=== PATIENT | female | born 1990 | race Caucasian/White ===

== ENCOUNTER 2020-07-11 | Outpatient (REF) | payer OTHER, SELFPAY | END 2020-07-11 00:01 | disposition home or self-care (01) | LOC: HO.LNP | PROVIDERS: Visit Provider Nurse Practitioner Family | DX: R68.83 Chills (without fever) (principal) | CPT/HCPCS: U0003 ==

== ENCOUNTER 2020-10-20 08:35 | Outpatient (REF) | payer OTHER, SELFPAY ==
[2020-10-22 11:41] LABS: C. trachomatis RNA TMA NOT DETECTED (NOT DETECTED); N. gonorrhoeae RNA TMA NOT DETECTED (NOT DETECTED)
[2020-10-25 00:12] LABS: HPV mRNA E6/E7 rflx Not Detected (Not Detected)
== END 2020-10-20 08:36 | disposition home or self-care (01) ==
LOC: HO.LAB 08:35
PROVIDERS: PCP Internal Medicine; Visit Provider Advanced Practice Midwife
DX: Z01.419 Encounter for gynecological examination (general) (routine) without abnormal findings (principal); Z11.51 Encounter for screening for human papillomavirus (HPV); N92.1 Excessive and frequent menstruation with irregular cycle; Z20.2 Contact with and (suspected) exposure to infections with a predominantly sexual mode of transmission; Z97.5 Presence of (intrauterine) contraceptive device
CPT/HCPCS: 36415; 87491; 87591; 87624; 88142

== ENCOUNTER → 2020-11-28 15:01 | Outpatient (BNVA) | payer OTHER, SELFPAY | PROVIDERS: Visit Provider Obstetrics & Gynecology ==

== ENCOUNTER 2020-12-06 07:57 | Outpatient (REF) | payer OTHER, SELFPAY ==
[2020-12-06 14:48] LABS: CT PCR NOT DETECTED (Not Detect.); NG PCR NOT DETECTED (Not Detect.)
== END 2020-12-06 07:58 | disposition home or self-care (01) ==
LOC: HO.LAB 07:57
PROVIDERS: Visit Provider Obstetrics & Gynecology
DX: N92.1 Excessive and frequent menstruation with irregular cycle (principal); Z11.3 Encounter for screening for infections with a predominantly sexual mode of transmission; Z11.8 Encounter for screening for other infectious and parasitic diseases; F17.200 Nicotine dependence, unspecified, uncomplicated; Z88.0 Allergy status to penicillin; Z91.048 Other nonmedicinal substance allergy status
CPT/HCPCS: 11982; 87491; 87591; 99212

== ENCOUNTER 2020-12-11 11:02 | Outpatient (REF) | payer OTHER, SELFPAY ==
--- NOTE | ~2020-12-11 | US_ITS ---
EXAMINATION: PELVIC ULTRASOUND CLINICAL INFORMATION: Excessive and frequent menstruation with irregular cycle COMPARISON: Previous exams most recent June 2019 TECHNIQUE: Transabdominal and transvaginal pelvic ultrasound was performed. Transvaginal exam was performed for better visualization of the uterus and ovaries. FINDINGS: The uterus is anteverted and measures 9.7 x 3.1 x 4.5 cm in dimension. No focal uterine lesion is seen. Endometrial thickness is normal measuring 1 cm. The previously identified IUD is no longer seen.There are nabothian cysts in the cervix. The right ovary measures 2.3 x 1.5 x 1.8 cm and is normal-appearing. The left ovary measures 4.4 x 3.3 x 3.6 cm in dimension. There is a 3.5 x 2.6 x 3 cm simple left ovarian cyst. There is a dilated tubular structure in the left adnexa questionable for hydrosalpinx. This is a new finding compared to June 2019 exam. US/US pelvic complete IMPRESSION: Normal thickness endometrium. IUD no longer seen. New 3.5 x 2.6 x 3 cm simple left ovarian cyst and dilated tubular structure in the left adnexa questionable for hydrosalpinx. This is a new finding compared to previous exam.
--- NOTE | ~2020-12-11 | US_ITS ---
EXAMINATION: PELVIC ULTRASOUND CLINICAL INFORMATION: Excessive and frequent menstruation with irregular cycle COMPARISON: Previous exams most recent June 2019 TECHNIQUE: Transabdominal and transvaginal pelvic ultrasound was performed. Transvaginal exam was performed for better visualization of the uterus and ovaries. FINDINGS: The uterus is anteverted and measures 9.7 x 3.1 x 4.5 cm in dimension. No focal uterine lesion is seen. Endometrial thickness is normal measuring 1 cm. The previously identified IUD is no longer seen.There are nabothian cysts in the cervix. The right ovary measures 2.3 x 1.5 x 1.8 cm and is normal-appearing. The left ovary measures 4.4 x 3.3 x 3.6 cm in dimension. There is a 3.5 x 2.6 x 3 cm simple left ovarian cyst. There is a dilated tubular structure in the left adnexa questionable for hydrosalpinx. This is a new finding compared to June 2019 exam. US/US transvaginal IMPRESSION: Normal thickness endometrium. IUD no longer seen. New 3.5 x 2.6 x 3 cm simple left ovarian cyst and dilated tubular structure in the left adnexa questionable for hydrosalpinx. This is a new finding compared to previous exam.
== END 2020-12-11 11:03 | disposition home or self-care (01) ==
LOC: HO.US 11:02
PROVIDERS: PCP Physician Assistant; Visit Provider Obstetrics & Gynecology
DX: N92.1 Excessive and frequent menstruation with irregular cycle (principal)
CPT/HCPCS: 76830; 76856

== ENCOUNTER 2021-01-14 08:31 | Emergency (ER) | payer OTHER, SELFPAY ==
--- NOTE | ~2021-01-14 | CT_ITS ---
EXAMINATION: CT ABDOMEN AND PELVIS WITHOUT CONTRAST CLINICAL INFORMATION: Left flank pain. COMPARISON: CT of the abdomen and pelvis done on 03/03/2010. TECHNIQUE: Multidetector volumetric imaging was performed from the superior aspect of the liver through the pubic symphysis. Sagittal and coronal reformatted images were obtained on the technologist's workstation. This CT examination was performed using dose optimization techniques as appropriate, variously including the following: *Automated exposure control *Adjustment of mA and/or kV according to patient size (this includes techniques or standardized protocols for targeted exams where dose is matched to indication/reason for exam; i.e. extremities or head) *Use of iterative reconstruction technique DLP: 725.0 mGy-cm FINDINGS: LUNG BASES: The visualized lung bases are unremarkable. LIVER, GALLBLADDER, AND BILIARY TREE: The liver is normal in size, shape, and attenuation. No focal hepatic lesion or biliary ductal dilatation is present. The gallbladder is unremarkable with no evidence of radiopaque gallstones, gallbladder wall thickening, or obvious pericholecystic inflammatory changes. PANCREAS: Unremarkable. SPLEEN: Unremarkable. ADRENAL GLANDS: Unremarkable. KIDNEYS AND URETERS: The kidneys are normal in size, shape, and attenuation. No hydronephrosis, hydroureter, or calculi seen. No perinephric stranding. BLADDER: Unremarkable. GASTROINTESTINAL TRACT: The small and large bowel are unremarkable. The appendix is unremarkable. ABDOMINAL WALL: No significant hernia is appreciated. LYMPH NODES: Normal. VASCULAR: Unremarkable. PELVIC VISCERA: Bilateral adnexal hypodensities are present, measures 5.7 x 3.8 cm on the left and 4.4 x 3.2 cm on the right, new since prior study, likely represent enlarged follicle-containing ovaries. However, given the size on the left, may also represent ovarian neoplasm. No evidence of any free fluid or free air. OSSEOUS STRUCTURES: No suspicious focal lesion. Endplate irregularity, sclerosis,, and focal cortical defect at superior endplate of S1 is present, likely represent degenerative changes. CT/CT abdomen pelvis wo con IMPRESSION: 1. No CT evidence of any radiopaque urine tract calculi and/or obstruction. 2. Bilateral adnexal hypodense lesions, measures 5.7 cm on the left and 4.4 cm on the right, may represent enlarged follicle-containing ovaries however, given the size on the left, possibility of ovarian neoplasm is not excluded. This is new since prior available study dated 03/03/2010.
--- NOTE | ~2021-01-14 | US_ITS ---
EXAMINATION: ULTRASOUND OF THE PELVIS CLINICAL INFORMATION: Left flank pain. Left ovarian mass.. COMPARISON: CT of the abdomen and pelvis done earlier today. Pelvic ultrasound done on 12/11/2020.. TECHNIQUE: Transabdominal and transvaginal pelvic ultrasound. Doppler evaluation including arterial as well as venous spectral Doppler waveforms and color Doppler were performed. FINDINGS: The uterus is normal in size and appearance, measuring 9.5 x 3.3 x 5.0 cm longitudinally, anteroposteriorly and transversely. The endometrial stripe thickness is normal, measuring 0.8 cm in thickness. No focal myometrial mass is seen. Concordant with the CT scan of the abdomen and pelvis done earlier today, there is indeed a cystic left adnexal mass identified, measures 6.3 x 3.6 x 5.1 cm with a volume of 60.6 mL, measured 4.4 x 3.3 x 3.6 cm on the pelvic ultrasound dated 12/11/2020, shows significant interval increase in size since the prior study. Arterial as well as venous flow to the left ovary is well-maintained. The right ovary is visualized, measures 2.3 x 1.4 x 1.3 cm with a volume of 2.2 mL, previously measured 2.3 x 1.5 x 1.8 cm. In addition, there is a tubular structure identified within the right adnexal region, similar to prior pelvic ultrasound dated 12/11/2020, may represent hydrosalpinx. Arterial as well as venous flow to the right ovary is well-maintained. Trace amount of free fluid is noted. A transvaginal study was performed in addition to the transabdominal study which did not yield an adequate examination of the uterus and ovaries due to superimposed distended gas-filled loops of bowel. US/US pelvic and transvaginal IMPRESSION: 1. Sonographically unremarkable uterus. 2. Large left adnexal 6.3 cm maximum dimension cyst, previously measured 4.4 cm on the pelvic ultrasound dated 12/11/2020. Both arterial as well as venous flow are well-maintained. 3. Sonographically normal-appearing right ovary, and dilated tubular fluid containing structure in the region of the right adnexa, may represent hydrosalpinx. 4. Trace amount of free fluid within the pelvis.
[2021-01-14 08:50] VITALS: BP 138/88; PULSE 66; RESP 18; TEMP 36.8; O2SAT 99; BMI 34.2
--- NOTE | 2021-01-14 08:55 | PC.NURSE ---
pt reports unsure if blood is coming from vaginal area or is hematuria. reports l sided ovarian cyst hx of different forms of control.
--- NOTE | 2021-01-14 09:10 | ED_ITS ---
HPI - Abdominal Pain General Chief Complaint: Abdominal Pain Stated Complaint: BACK PAIN POS COVID 2WKS Time Seen by Provider: 01/14/21 08:53 Source: patient Mode of arrival: ambulatory Limitations: no limitations History of Present Illness HPI narrative: 30-year-old female came in for evaluation of left flank pain with hematuria. Left flank pain since yesterday that radiates down to the left abdominal area, patient notice when she wipes after urination see blood on the paper, pain is constant, moderate 5/10, nothing makes it worse, nothing makes it better, never had this pain before. Patient status post IUD removal. History of left ovarian cyst. No nausea, no vomiting, no diarrhea, no fever. Related Data Home Medications Medication Instructions Recorded Confirmed etonogestrel 68 mg subdermal SUBDERMAL 12/06/20 implant Previous Rx's Medication Instructions Recorded cetirizine 10 mg tablet 10 mg PO DAILY 30 Days #30 tab 07/11/20 levofloxacin 750 mg PO DAILY #10 tab 01/14/21 Allergies Allergy/AdvReac Type Severity Reaction Status Date / Time acetic acid [VINEGAR] Allergy Unknown STOMACH Verified 12/06/20 08:17 UPSET penicillin V Allergy Unknown hives Verified 12/06/20 08:17 Penicillins Allergy Unknown RASH,HIVES Verified 12/06/20 08:17 Review of Systems Review of Systems All other systems are reviewed and are negative Constitutional: Reports as per HPI and Reports no additional constitutional complaints Eyes: Reports as per HPI and Reports no additional eye complaints Reports system reviewed and no additional complaints, except as documented Cardiovascular: Reports as per HPI and Reports no additional cardiovascular complaints Respiratory: Reports as per HPI and Reports no additional respiratory complaints Gastrointestinal: Reports as per HPI and Reports no additional gastrointestinal complaints Genitourinary: Reports no additional female genitourinary complaints Musculoskeletal: Reports no additional musculoskeletal complaints Skin/Breast: Reports system reviewed and no additional complaints, except as docu Psychiatric: Reports no additional psychiatric complaints Endocrine: Reports no additional endocrine complaints Hematologic/Lymphatic: Reports no additional hematologic/lymphatic complaints Allergic/Immunologic: Reports no additional allergic/immunologic complaints Reports system reviewed and no additional complaints, except as documented and Reports Abnormal speech present Physical Exam Vital Signs: Vital Signs: Last Vital Signs Temp 98.2 F 01/14/21 08:50 Pulse 66 01/14/21 08:50 Resp 18 01/14/21 08:50 BP 138/88 05/16/21 08:50 Pulse Ox 99 01/14/21 08:50 Body Mass Index 34.2 Vital signs have been reviewed as appeared to be correct. Blood pressure normal. Heart rate normal. Respiration rate normal. Temperature normal. Oxygen saturation normal. Appearance: Alert. Oriented X3. No acute distress. Head: Normal external exam. Normocephalic. Atraumatic. No Castellanos signs noted. No raccoon eyes noted Eyes: PERRLA. EOMI. Conjunctiva and sclera normal. Eyelids normal. ENT: TM's Normal. Pharynx normal. Uvula midline. Moist mucous membranes. No t rismus noted. No drooling noted. No muffled voice noted. Neck: Normal inspection. Neck supple. FROM. No adenopathy. Thyroid Normal. No meningeal signs. No neck mass noted. CVS: Normal heart rate and rhythm. Heart sound normal. No murmurs noted. Pulses normal throughout. Respiratory: No respiratory distress. Painless inspiration. Breath sounds normal. No wheezes/rales/rhonchi noted. Chest nontender. No accessory muscle usage noted or decreased air movement noted. Abdomen: Soft, mild left abdominal. Bowel sounds normal in all 4 quadrants. No distention noted. No organomegaly noted. No visible injury noted. Back: Mild left CVA tenderness. Full range of motion noted. Skin: Skin warm and dry. Normal skin color. Normal skin turgor. No rashes/lesions/lacerations noted. Extremities: No lower extremity edema. Extremities exhibit normal range of motion. Extremities nontender. Neuro: Oriented X 3. No motor deficit. No sensory deficit. Reflexes normal. Course Course Course Narrative: Assessment and plan. 1. Left pyelonephritis with no sepsis or SIRS start the patient on Levaquin. 2. 6 cm left ovarian cyst was discussed with the patient the patient at risk for ovarian torsion patient was instructed to follow-up with her OBGYN for further management of the sizable left ovarian cyst. MDM - Abdominal Pain Lab Data Attestation: I reviewed the patient's lab results. Result diagrams: 01/14/21 09:21 01/14/21 09:21 Labs: Lab Results 01/14/21 01/14/21 01/14/21 Range/Units 09: 09:21 10:13 WBC 11.1 H (4.8-10.8) X10*3/uL RBC 4.51 (4.20-5.50) X10*6/uL Hgb 13.6 (12.0-16.0) g/dl Hct 40.8 (37-47) % MCV 90.5 (80-98) fL MCH 30.2 (27.0-33.0) pg MCHC 33.3 (31.0-35.0) g/dl RDW 12.3 (11.0-16.0) % Plt Count 288 (160-400) X10*3/uL MPV 9.9 (9.4-12.3) fL Immature Gran % (Auto) 0.3 (0.0-0.4) % Neut % (Auto) 71.1 (45-73) % Lymph % (Auto) 19.9 L (20-40) % [place] % (Auto) 7.5 (2-11) % Eos % (Auto) 0.9 (0-4) % Baso % (Auto) 0.3 (0-2) % Lymph # (Auto) 2.2 (1.2-4.9) X10*3/uL [place] # (Auto) 0.8 (0.1-1.2) X10*3/uL Eos # (Auto) 0.1 (0.0-0.4) X10*3/uL Baso # (Auto) 0.0 (0.0-0.2) X10*3/uL Abs Immat Gran (auto) 0.03 (0.00-0.03) X10*3/uL Absolute Neuts (auto) 7.9 (2.0-8.3) X10*3/uL Absolute Nucleated RBC 0.000 (0.0-0.012) X10*3/uL Nucleated RBC % (auto) 0.0 (0.0-0.2) /100WBC Sodium 140 (135-145) mmol/L Potassium 4.0 (3.3-5.1) mmol/L Chloride 107 (96-108) mmol/L Carbon Dioxide 24 (22-29) mmol/L Anion Gap 13 (12-20) BUN 13 (9-16) mg/dL Creatinine 0.82 (0.5-1.4) mg/dL Estim Creat Clear Calc 105.2 Estimated GFR > 60 Random Glucose 98 (60-115) mg/dL Calcium 8.9 (8.4-10.2) mg/dL Total Bilirubin 0.5 (0.0-1.0) mg/dL Direct Bilirubin 0.2 (0.0-0.5) mg/dL AST 16 (5-31) U/L ALT 20 (0-31) U/L Alkaline Phosphatase 80 (39-117) U/L Total Protein 6.4 L (6.5-8.0) g/dL Albumin 4.0 (3.5-5.0) g/dL Lipase 11 (8-78) U/L Urine Color YELLOW Urine Appearance HAZY Urine pH 6.0 (5.0-8.0) Ur Specific [place] 1.015 (1.005-1.025) Urine Protein TRACE (NEG-TRACE) MG/DL Urine Glucose (UA) NEG (NEG) MG/DL Urine Ketones NEG (NEG) MG/DL Urine Blood 3+ H (NEG) Urine Nitrite POS H (NEG) Ur Leukocyte Esterase 1+ H (NEG) Urine RBC 10-14 H (0) /HPF Urine WBC 30-49 H (0-4) /HPF Ur Squamous Epith Cells 1+ /LPF Urine Bacteria 2+ /LPF Urine Mucus 1+ /LPF Urine Test (NEGATIVE) 01/14/21 Range/Units 10:13 WBC (4.8-10.8) X10*3/uL RBC (4.20-5.50) X10*6/uL Hgb (12.0-16.0) g/dl Hct (37-47) % MCV (80-98) fL MCH (27.0-33.0) pg MCHC (31.0-35.0) g/dl RDW (11.0-16.0) % Plt Count (160-400) X10*3/uL MPV (9.4-12.3) fL Immature Gran % (Auto) (0.0-0.4) % Neut % (Auto) (45-73) % Lymph % (Auto) (20-40) % [place] % (Auto) (2-11) % Eos % (Auto) (0-4) % Baso % (Auto) (0-2) % Lymph # (Auto) (1.2-4.9) X10*3/uL [place] # (Auto) (0.1-1.2) X10*3/uL Eos # (Auto) (0.0-0.4) X10*3/uL Baso # (Auto) (0.0-0.2) X10*3/uL Abs Immat Gran (auto) (0.00-0.03) X10*3/uL Absolute Neuts (auto) (2.0-8.3) X10*3/uL Absolute Nucleated RBC (0.0-0.012) X10*3/uL Nucleated RBC % (auto) (0.0-0.2) /100WBC Sodium (135-145) mmol/L Potassium (3.3-5.1) mmol/L Chloride (96-108) mmol/L Carbon Dioxide (22-29) mmol/L Anion Gap (12-20) BUN (9-16) mg/dL Creatinine (0.5-1.4) mg/dL Estim Creat Clear Calc Estimated GFR Random Glucose (60-115) mg/dL Calcium (8.4-10.2) mg/dL Total Bilirubin (0.0-1.0) mg/dL Direct Bilirubin (0.0-0.5) mg/dL AST (5-31) U/L ALT (0-31) U/L Alkaline Phosphatase (39-117) U/L Total Protein (6.5-8.0) g/dL Albumin (3.5-5.0) g/dL Lipase (8-78) U/L Urine Color Urine Appearance Urine pH (5.0-8.0) Ur Specific [place] (1.005-1.025) Urine Protein (NEG-TRACE) MG/DL Urine Glucose (UA) (NEG) MG/DL Urine Ketones (NEG) MG/DL Urine Blood (NEG) Urine Nitrite (NEG) Ur Leukocyte Esterase (NEG) Urine RBC (0) /HPF Urine WBC (0-4) /HPF Ur Squamous Epith Cells /LPF Urine Bacteria /LPF Urine Mucus /LPF Urine Test NEGATIVE (NEGATIVE) Imaging Data CT scan - abdomen: Radiologist's impression: 1. No CT evidence of any radiopaque urine tract calculi and/or obstruction. 2. Bilateral adnexal hypodense lesions, measures 5.7 cm on the left and 4.4 cm on the right, may represent enlarged follicle-containing ovaries however, given the size on the left, possibility of ovarian neoplasm is not excluded. This is new since prior available study dated 03/03/2010. Pelvic ultrasound/Doppler: Radiologist's impression: 1. Sonographically unremarkable uterus. 2. Large left adnexal 6.3 cm maximum dimension cyst, previously measured 4.4 cm on the pelvic ultrasound dated 12/11/2020. Both arterial as well as venous flow are well-maintained. 3. Sonographically normal-appearing right ovary, and dilated tubular fluid containing structure in the region of the right adnexa, may represent hydrosalpinx. 4. Trace amount of free fluid within the pelvis. Discharge Plan Discharge Clinical Impression: Pyelonephritis, Ovarian cyst Patient Disposition: Home, Self-Care Instructions: Ovarian Cyst (ED), Kidney Infection (ED) Prescriptions: New levofloxacin 750 mg tablet 750 mg PO DAILY Qty: 10 RF: 0 No Action cetirizine [Zyrtec] 10 mg tablet 10 mg PO DAILY 30 Days Qty: 30 RF: 0 Nexplanon 68 mg implant subdermal RF: 0 Referrals: Iza Quintero MD [Physician] - 2 days PMF Past Medical History Medical History Arnold-Chiari malformation Asthma Hx of migraine headaches Surgical History History of bunionectomy Social History Social History Alcohol intake: current Alcohol intake frequency: holidays/special occasions only Smoking Status: Never smoker Use of substances other than those prescribed or required for medical reasons: No Advance Directives: Yes Advance Directives Information Provided: No Advance Directives on File: No Patient : No
[2021-01-14 09:25] LABS: MANUAL DIFF FLAG NO
[2021-01-14 09:26] LABS: Basophils Percent Auto 0.3 % (0-2); Eosinophils Absolute Auto 0.1 X10*3/uL (0.0-0.4); Eosinophils Percent Auto 0.9 % (0-4); Hematocrit 40.8 % (37-47); Hemoglobin 13.6 g/dl (12.0-16.0); Imm Gran Abs Auto 0.03 X10*3/uL (0.00-0.03); Imm Gran Pct Auto 0.3 % (0.0-0.4); Lymphocytes Absolute Auto 2.2 X10*3/uL (1.2-4.9); Lymphocytes Percent Auto 19.9 % (20-40); Mean Corpuscular HGB Conc 33.3 g/dl (31.0-35.0); Mean Corpuscular Hemoglobin 30.2 pg (27.0-33.0); Mean Corpuscular Volume 90.5 fL (80-98); Mean Platelet Volume 9.9 fL (9.4-12.3); Monocytes Absolute Auto 0.8 X10*3/uL (0.1-1.2); Monocytes Percent Auto 7.5 % (2-11); Neutrophils Absolute Auto 7.9 X10*3/uL (2.0-8.3); Neutrophils Percent Auto 71.1 % (45-73); Platelet Count 288 X10*3/uL (160-400); Red Blood Count 4.51 X10*6/uL (4.20-5.50); Red Cell Distribution Width 12.3 % (11.0-16.0); White Blood Count 11.1 X10*3/uL (4.8-10.8)
[2021-01-14] MEDS: 0.9 % Sodium Chloride 1,000 ML 999 ML IVCONT (09:32)
[2021-01-14 10:07] LABS: Alanine Aminotransferase 20 U/L (0-31); Alkaline Phosphatase 80 U/L (39-117); Anion Gap 13 (12-20); Aspartate Amino Transferase 16 U/L (5-31); Bilirubin Direct 0.2 mg/dL (0.0-0.5); Bilirubin Total 0.5 mg/dL (0.0-1.0); Blood Urea Nitrogen 13 mg/dL (9-16); Calcium 8.9 mg/dL (8.4-10.2); Carbon Dioxide 24 mmol/L (22-29); Chloride 107 mmol/L (96-108); Creatinine Clr Calc Pharmacy 105.2; Estimated Glomerular Filt Rate > 60; Glucose Random 98 mg/dL (60-115); Lipase 11 U/L (8-78); Sodium 140 mmol/L (135-145); Total Protein 6.4 g/dL (6.5-8.0)
[2021-01-14 10:27] LABS: Glucose Urine UA NEG (NEG); Leukocyte Esterase Urine 1+ (NEG); Nitrite Urine POS (NEG); Specific Gravity - Urine 1.015 (1.005-1.025); UACC Culture Trigger YES; Urine Blood 3+ (NEG); Urine Ketones NEG (NEG); Urine Protein TRACE MG/DL (NEG-TRACE)
[2021-01-14 10:28] LABS: UPreg QC Valid YES; Urine Pregnancy NEGATIVE (NEGATIVE)
[2021-01-14 10:32] LABS: Appearance Urine HAZY; Color Urine YELLOW
[2021-01-14 10:34] LABS: Bacteria Urine 2+ /LPF; Mucus Urine 1+ /LPF; Squamous Epithelial Cell Urine 1+ /LPF; WBC Urine 30-49 /HPF (0-4)
--- NOTE | 2021-01-14 12:43 | PC.NURSE ---
pt at [facility] unable to hang bc
[2021-01-14] MEDS: levoFLOXacin/D5W 750 MG/150 ML PIGGYBACK 100 MG IV (13:48)
== END 2021-01-14 15:44 | disposition home or self-care (01) ==
PROVIDERS: Emergency Provider Emergency Medicine
DX: N10 Acute pyelonephritis (principal); N83.202 Unspecified ovarian cyst, left side; Z79.899 Other long term (current) drug therapy; Z86.16 Personal history of COVID-19
CPT/HCPCS: 36415; 74176; 76830; 76856; 80048; 80076; 81001; 81003; 81025; 83605; 83690; 85025; 87040; 87086; 87088; 87186; 93975; 99284; J1956

== ENCOUNTER → 2021-01-23 14:36 | Outpatient (BNVA) | payer OTHER, SELFPAY | PROVIDERS: PCP Internal Medicine; Visit Provider Obstetrics & Gynecology ==

== ENCOUNTER 2021-04-13 08:11 | Outpatient (REF) | payer OTHER, SELFPAY ==
[2021-04-13 11:29] LABS: MANUAL DIFF FLAG NO
[2021-04-13 11:40] LABS: Basophils Percent Auto 0.2 % (0-2); Eosinophils Absolute Auto 0.1 X10*3/uL (0.0-0.4); Eosinophils Percent Auto 0.9 % (0-4); Hematocrit 41.8 % (37-47); Hemoglobin 13.6 g/dl (12.0-16.0); Imm Gran Abs Auto 0.04 X10*3/uL (0.00-0.03); Imm Gran Pct Auto 0.4 % (0.0-0.4); Lymphocytes Absolute Auto 2.7 X10*3/uL (1.2-4.9); Lymphocytes Percent Auto 29.8 % (20-40); Mean Corpuscular HGB Conc 32.5 g/dl (31.0-35.0); Mean Corpuscular Hemoglobin 29.6 pg (27.0-33.0); Mean Corpuscular Volume 90.9 fL (80-98); Mean Platelet Volume 11.2 fL (9.4-12.3); Monocytes Absolute Auto 0.6 X10*3/uL (0.1-1.2); Monocytes Percent Auto 6.8 % (2-11); Neutrophils Absolute Auto 5.7 X10*3/uL (2.0-8.3); Neutrophils Percent Auto 61.9 % (45-73); Platelet Count 266 X10*3/uL (160-400); Red Cell Distribution Width 12.7 % (11.0-16.0); White Blood Count 9.2 X10*3/uL (4.8-10.8)
[2021-04-13 11:58] LABS: Alanine Aminotransferase 17 U/L (0-31); Anion Gap 12 (12-20); Aspartate Amino Transferase 14 U/L (5-31); Blood Urea Nitrogen 14 mg/dL (9-16); Calcium 9.2 mg/dL (8.4-10.2); Carbon Dioxide 24 mmol/L (22-29); Chloride 106 mmol/L (96-108); Cholesterol 190 mg/dL; Estimated Glomerular Filt Rate > 60; Glucose Fasting 101 mg/dL (60-99); HDL Cholesterol 54 mg/dL; LDL Cholesterol Calculated 122 mg/dl; Potassium 4.1 mmol/L (3.3-5.1); Sodium 138 mmol/L (135-145); Triglycerides 70 mg/dL
[2021-04-13 12:21] LABS: TSH reflex Free T4 0.87 uIU/mL (0.32-4.0); Vitamin D 25-OH Total 25.3 ng/mL (>30)
== END 2021-04-13 08:12 | disposition home or self-care (01) ==
LOC: HO.HMGCLDS 08:11
PROVIDERS: PCP Internal Medicine; Visit Provider Internal Medicine
DX: Z00.01 Encounter for general adult medical examination with abnormal findings (principal); N92.1 Excessive and frequent menstruation with irregular cycle; I10 Essential (primary) hypertension; Z83.3 Family history of diabetes mellitus; Z83.49 Family history of other endocrine, nutritional and metabolic diseases
CPT/HCPCS: 36415; 80048; 80061; 82306; 84443; 84450; 84460; 85025

== ENCOUNTER 2021-04-23 13:02 | Outpatient (REF) | payer OTHER, SELFPAY ==
--- NOTE | ~2021-04-23 | US_ITS ---
EXAMINATION: US PELVIS CLINICAL INFORMATION: Question ovarian cyst. COMPARISON: Pelvic ultrasound dated 01/14/2021. TECHNIQUE: Ultrasound of the pelvis is performed using both transabdominal and transvaginal transducers along with Doppler. Transvaginal imaging is performed due to inadequate visualization transabdominally. FINDINGS: Uterus: The uterus is anteverted and measures 10.3 x 3.2 x 4.6 cm. The uterus is anteverted and anteflexed. The double wall endometrial thickness is 1.0 mm. The uterus is smooth in contour and has normal myometrial echogenicity. No visible fibroid. Adnexa: Both ovaries are visualized. There is normal color flow to the adnexa. There is no ovarian torsion. There is no pelvic ascites or fluid collection. In the left adnexa, a 4.0 x 2.3 x 3.7 cm tubular structure, again suspicious for hydrosalpinx. Right ovary measures 2.1 x 1.7 x 1.9 cm (volume 3.4 mL). Left ovary measures 2.7 x 2.0 x 3.5 cm (volume 6.9 mL). The left ovary contains a 1.7 x 0.7 x 1.4 cm resolving corpus luteum cyst with internal mildly reticulated appearance. US/US pelvic and transvaginal IMPRESSION: 1. A left hydrosalpinx is again questioned. If clinically indicated, this can be further evaluated MRI or hysterosalpingography. Recommend Gynecology evaluation an management. 2. A 1.7 cm maximal diameter left ovarian hemorrhagic cyst is of incidental note.
== END 2021-04-23 13:03 | disposition home or self-care (01) ==
LOC: HO.US 13:02
PROVIDERS: PCP Physician Assistant; Visit Provider Obstetrics & Gynecology
DX: N83.209 Unspecified ovarian cyst, unspecified side (principal)
CPT/HCPCS: 76830; 76856

== ENCOUNTER → 2021-05-08 16:01 | Outpatient (BNVA) | payer OTHER, SELFPAY | PROVIDERS: Visit Provider Obstetrics & Gynecology ==

== ENCOUNTER 2021-10-29 08:34 | Outpatient (REF) | payer OTHER, SELFPAY ==
[2021-10-29 15:14] LABS: CT PCR NOT DETECTED (Not Detect.); NG PCR NOT DETECTED (Not Detect.)
[2021-10-29 16:21] LABS: BV Int Neg Control Negative (Negative); BV Int Pos Control Positive (Positive)
== END 2021-10-29 08:35 | disposition home or self-care (01) ==
LOC: HO.LAB 08:34
PROVIDERS: Visit Provider Advanced Practice Midwife
DX: Z31.69 Encounter for other general counseling and advice on procreation (principal); R10.2 Pelvic and perineal pain; Z20.2 Contact with and (suspected) exposure to infections with a predominantly sexual mode of transmission
CPT/HCPCS: 87480; 87491; 87510; 87591; 87660

== ENCOUNTER 2021-11-22 11:26 | Outpatient (REF) | payer OTHER, SELFPAY ==
--- NOTE | ~2021-11-22 | US_ITS ---
EXAM: Pelvic Ultrasound CLINICAL INDICATION: Chronic salpingitis COMPARISON: Pelvic ultrasound 04/23/2021 TECHNIQUE: The pelvis was evaluated using transabdominal and transvaginal imaging. FINDINGS: The uterus measures 9.3 x 3.4 x 4.5 cm in longitudinal by AP by transverse dimension. The endometrial stripe is not thickened and measures 1.0 cm. Small nabothian cyst identified within the cervix. The left ovary measures approximately 2.8 x 2.4 x 2.6 cm. There is a 2.5 cm simple appearing cyst within the left ovary. Abutting the left ovary there is a hypoechoic tubular shaped structure measuring upwards of 6.5 cm which is most suggestive of a hydrosalpinx. The right ovary measures approximately 2.3 x 1.3 x 1.5 cm and is normal. There is no free fluid in the pelvis. US/US pelvic and transvaginal IMPRESSION: -Left hydrosalpinx again suspected.
== END 2021-11-22 11:27 | disposition home or self-care (01) ==
LOC: HO.US 11:26
PROVIDERS: Visit Provider Advanced Practice Midwife
DX: N70.11 Chronic salpingitis (principal)
CPT/HCPCS: 76830; 76856

== ENCOUNTER → 2021-12-06 11:18 | Outpatient (BNVA) | payer OTHER, SELFPAY | PROVIDERS: PCP Internal Medicine; Visit Provider Advanced Practice Midwife | DX: N70.11 Chronic salpingitis (principal); Z71.2 Person consulting for explanation of examination or test findings | CPT/HCPCS: Q3014 ==

== ENCOUNTER → 2021-12-28 08:52 | Outpatient (BNVA) | payer OTHER, SELFPAY | PROVIDERS: Visit Provider Advanced Practice Midwife | DX: N70.11 Chronic salpingitis (principal); R10.2 Pelvic and perineal pain; Z31.69 Encounter for other general counseling and advice on procreation | CPT/HCPCS: 81025; 99212 ==

== ENCOUNTER 2022-03-01 15:15 | Outpatient (REF) | payer OTHER, SELFPAY ==
--- NOTE | ~2022-03-01 | US_ITS ---
EXAMINATION: US PELVIS CLINICAL INFORMATION: Chronic salpingitis COMPARISON: Previous exams most recent October 2021 TECHNIQUE: Ultrasound of the pelvis is performed using both transabdominal and transvaginal transducers along with Doppler. Transvaginal imaging is performed due to inadequate visualization transabdominally. FINDINGS: Uterus: The uterus is anteverted and measures 8.2 x 3.6 x 4.3 cm. The double wall endometrial thickness is 1.3 mm. The uterus is smooth in contour and has normal myometrial echogenicity. No visible fibroid. Adnexa: Right ovary measures 2.3 x 1.6 x 2.3 cm. The right ovary is normal-appearing. Left ovary measures 5.1 x 4.8 x 3.5 cm. There is a 2.5 x 1.5 x 1.8 cm left ovarian cyst. There is a dilated tubular septated structure in the left adnexa suggestive of hydrosalpinx. This is similar to previous exam. US/US pelvic complete IMPRESSION: Left hydrosalpinx similar to previous exam.
== END 2022-03-01 15:16 | disposition home or self-care (01) ==
LOC: HO.US 15:15
PROVIDERS: Visit Provider Advanced Practice Midwife
DX: N70.11 Chronic salpingitis (principal)
CPT/HCPCS: 76856

== ENCOUNTER 2022-04-15 13:48 | Outpatient (REF) | payer OTHER, SELFPAY ==
[2022-04-16 04:57] LABS: CT PCR NOT DETECTED (Not Detect.); NG PCR NOT DETECTED (Not Detect.)
[2022-04-16 13:39] LABS: BV Int Neg Control Negative (Negative); BV Int Pos Control Positive (Positive)
== END 2022-04-15 13:49 | disposition home or self-care (01) ==
LOC: HO.LAB 13:48
PROVIDERS: Visit Provider Advanced Practice Midwife
DX: R10.2 Pelvic and perineal pain (principal); N93.9 Abnormal uterine and vaginal bleeding, unspecified; Z20.2 Contact with and (suspected) exposure to infections with a predominantly sexual mode of transmission
CPT/HCPCS: 81003; 81025; 87480; 87491; 87510; 87591; 87660; 99212

== ENCOUNTER 2022-05-20 08:07 | Outpatient (REF) | payer OTHER, SELFPAY ==
[2022-05-20 09:37] LABS: Hematocrit 42.2 % (37.0-47.0); Hemoglobin 13.9 g/dl (12.0-16.0); Mean Corpuscular HGB Conc 32.9 g/dl (31.0-35.0); Mean Corpuscular Hemoglobin 29.6 pg (27.0-33.0); Mean Platelet Volume 10.2 fL (9.4-12.3); Platelet Count 327 X10*3/uL (160-400); Red Blood Count 4.69 X10*6/uL (4.20-5.50); Red Cell Distribution Width 12.7 % (11.0-16.0); White Blood Count 6.9 X10*3/uL (4.8-10.8)
[2022-05-20 10:19] LABS: Thyroid Stimulating Hormone 0.55 uIU/mL (0.32-4.0)
== END 2022-05-20 08:08 | disposition home or self-care (01) ==
LOC: HO.LAB 08:07
PROVIDERS: Absent Provider Advanced Practice Midwife; PCP Internal Medicine; Visit Provider Obstetrics & Gynecology
DX: Z31.69 Encounter for other general counseling and advice on procreation (principal); N70.11 Chronic salpingitis; N93.9 Abnormal uterine and vaginal bleeding, unspecified; N92.1 Excessive and frequent menstruation with irregular cycle
CPT/HCPCS: 36415; 84443; 85027; 99212

== ENCOUNTER 2022-08-08 14:26 | Outpatient (REF) | payer OTHER, SELFPAY ==
[2022-08-08 15:15] LABS: Influenza A PCR POSITIVE (Negative); Influenza B PCR NEGATIVE (Negative); Resp Syncy Virus RNA Qual PCR NEGATIVE (Negative); SARS COV2 PCR INHOUSE NEGATIVE (Negative)
== END 2022-08-08 14:27 | disposition home or self-care (01) ==
LOC: HO.LNP 14:26
PROVIDERS: Visit Provider Internal Medicine
DX: Z20.822 Contact with and (suspected) exposure to COVID-19 (principal); R09.89 Other specified symptoms and signs involving the circulatory and respiratory systems
CPT/HCPCS: 0241U

== ENCOUNTER 2022-11-01 08:48 | Outpatient (REF) | payer OTHER, SELFPAY ==
[2022-11-02 03:23] LABS: CT PCR NOT DETECTED (Not Detect.); NG PCR NOT DETECTED (Not Detect.)
[2022-11-02 11:34] LABS: BV Int Neg Control Negative (Negative)
[2022-11-02 11:35] LABS: BV Int Pos Control Positive (Positive)
== END 2022-11-01 08:49 | disposition home or self-care (01) ==
LOC: HO.LNP 08:48
PROVIDERS: PCP Internal Medicine; Visit Provider Advanced Practice Midwife
DX: Z01.419 Encounter for gynecological examination (general) (routine) without abnormal findings (principal); Z20.2 Contact with and (suspected) exposure to infections with a predominantly sexual mode of transmission
CPT/HCPCS: 0353U; 87480; 87510; 87660

== ENCOUNTER 2022-11-19 16:21 | Outpatient (REF) | payer OTHER, SELFPAY ==
--- NOTE | ~2022-11-19 | US_ITS ---
EXAM: Pelvic Ultrasound CLINICAL INDICATION: Chronic salpingitis COMPARISON: Pelvic ultrasound 03/01/2022 TECHNIQUE: The pelvis was evaluated using transabdominal and transvaginal imaging. FINDINGS: The uterus measures 9.8 x 4.3 x 4.5 cm in longitudinal by AP by transverse dimension. The endometrial stripe is not thickened and measures 0.5 cm. Some small calcifications are again noted within the lower uterine segment. Nabothian cysts are present within the cervix. The left ovary measures approximately 2.2 x 1.8 x 1.9 cm. Again noted abutting the left ovary is a dilated tubular structure suggesting hydrosalpinx. The right ovary measures approximately 2.2 x 1.8 x 2.3 cm and is normal. There is no free fluid in the pelvis. US/US pelvic and transvaginal IMPRESSION: Again noted abutting the left ovary is a dilated tubular structure suggesting hydrosalpinx.
== END 2022-11-19 16:22 | disposition home or self-care (01) ==
LOC: HO.US 16:21
PROVIDERS: Visit Provider Advanced Practice Midwife
DX: N70.11 Chronic salpingitis (principal); N83.209 Unspecified ovarian cyst, unspecified side
CPT/HCPCS: 76830; 76856

== ENCOUNTER → 2022-12-12 12:57 | Outpatient (BNVA) | payer OTHER, SELFPAY | PROVIDERS: PCP Internal Medicine; Visit Provider Advanced Practice Midwife | DX: Z71.2 Person consulting for explanation of examination or test findings (principal); N70.11 Chronic salpingitis | CPT/HCPCS: 99212 ==

== ENCOUNTER 2023-04-24 09:09 | Outpatient (AMB) | payer OTHER, SELFPAY ==
--- NOTE | 2023-04-24 10:00 | AM.OFFWIN_ITS ---
Intake Vital Signs 04/24/23 10:01 Height 5 ft 3 in Weight 97.125 kg BMI 37.9 BP 110/66 Blood Pressure Location Rt brachial Position Sitting Pulse 77 Pulse Source Pulse Oximeter Temp 97.9 F Temp Source Temporal Artery Scan Pulse Oximetry (%) 99 Oxygen Delivery Method Room Air Intake Visit Reasons: EP ?COVID + test/ [id number] Intake Note: Pt is here requesting to be tested for COVID. Pt states she tested herself at home and was positive but the test was . Patient Tobacco Use Status: Never used Tobacco Allergies acetic acid [VINEGAR] Allergy (Unknown, Verified 04/24/23 10:01) STOMACH UPSET Penicillins Allergy (Unknown, Verified 04/24/23 10:01) RASH,HIVES Do you need a note to return to daycare/school/sports/work: No HPI HPI Comments History of Present Illness Details 1028 33-year-old female presents with fatigue, malaise, frontal headache, body aches and pains, currently 12 weeks followed by OBGYN, she took not home COVID test which is positive however she noted that this test was , her OBGYN recommended she be test with the PCR test. Patient denies chest pain, shortness of breath, nausea, vomiting, vision changes, dizziness and weakness. Physical exam benign. abdomen This is likely viral illness and COVID-19, unlikely intracranial hemorrhage, stroke, posterior stroke. Unlikely polymyalgia rheumatica, rhabdomyolysis. Plan COVID test. Educated patient on diagnosis and treatment plan, answered all question, patient verbalizes understanding. At this time patient will be discharged home, advised to return with new or worsening symptoms. Educated on worrisome signs and symptoms and when to return. At this time I feel comfortable discharge home. [facility] Medical History Arnold-Chiari malformation Asthma Family history of diabetes mellitus Family history of thyroid problem History of COVID-19 Hx of migraine headaches Hydrosalpinx Migraine Pain, eye, left Plantar fascial fibromatosis of left foot Surgical History History of bunionectomy Family History Mother Diabetes mellitus with multiple complications Maternal Grandfather Diabetes mellitus with multiple complications Maternal Grandmother Diabetes mellitus with multiple complications Paternal Uncle Colon cancer Family/Other Breast cancer Social History Household Members: Significant Other and Children Housing: Apartment Alcohol intake: current Alcohol intake frequency: holidays/special occasions only Patient Tobacco Use Status: Never used Tobacco Tobacco use type: Cigarette Cigarette Packs Per Day: 0 Cigarettes Per Day: 1 e-Cigarette/Vaping Use: Never Used service: No Current occupational status: employed 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 Sexual orientation: Straight/Heterosexual Female Reproductive History Menstrual Age of Menarche: 12 Review of Systems Const Details: Constitutional : No Weight loss, No Fever, No Chills, + Fatigue, + Malaise ENT/Mouth : No sore throat, No Rhinorrhea Eyes: No Eye Pain, No Swelling, No Redness Cardiovascular : No Chest Pain, No SOB, No Dyspnea on Exertion, No Orthopnea, No Edema, No Palpitations Respiratory : No Cough, No Sputum, No Wheezing Gastrointestinal : No Nausea, No Vomiting, No Diarrhea, No Constipation, No abdominal Pain, No Hematochezia, No Melena Genitourinary : No Dysuria, No Urinary Frequency, No Hematuria, Musculoskeletal : No joint pain, + Myalgias, No Joint Swelling Skin : No Skin Lesions, No rash Neuro : No Weakness, No Numbness, No Dizziness, + Headache Psych : No Anxiety/Panic, No Depression All other systems reviewed and are negative All systems reviewed & are unremarkable except as noted in HPI and below Physical Exam Vital Signs: Last Vital Signs Temp 97.9 F 04/24/23 10:01 Pulse 77 04/24/23 10:01 BP 110/66 04/24/23 10:01 Pulse Ox 99 04/24/23 10:01 Oxygen Delivery Method Room Air 04/24/23 10:01 BMI result Body Mass Index 37.9 Vital signs stable Appearance: Alert.? Oriented X3.? No acute distress.? Head: Normocephalic, atraumatic, no step-offs or deformities Eyes: Pupils equal, round and reactive to light.? ENT: Pharynx normal.? Neck: Normal inspection.? Neck supple.? CVS: Normal heart rate and rhythm.? Pulses normal.? Respiratory: No respiratory distress.? Breath sounds normal.? Abdomen: Soft and nontender.? Skin: Skin warm and dry.? Normal skin color.? Normal skin turgor.? Extremities: No lower extremity edema.? No calf ttp. 5/5 strength to bilateral upper and lower extremities Back: No midline tenderness, no C-spine tenderness, full range of motion, no CVA tenderness bilaterally Neuro: Oriented X 3.? No motor deficit.? No sensory deficit. CN 2-12 intact Assessment & Plan Assessment & Plan (1) COVID-19: Code(s): U07.1 - COVID-19 Plan Take your medications as prescribed. If you were prescribed antibiotics today, it is important that you take your medication to their entirety, do not skip any doses, do not finish them early. Today you tested positive for COVID-19. Take Ibuprofen or Tylenol as needed for fevers or body aches. Quarantine for 5 days and ensure you wear a mask. After 5 days you should wear a mask for 5 days after that. Practice social distancing and good hand hygiene. Drink plenty of fluids. Follow-up with your primary care provider this week. Return to the emergency department with new or worsening symptoms. In case of emergency call 911 You can purchase a pulse oximeter from your local pharmacy or grocery store, and monitor your oxygen saturation if it goes below 94% you should return to the emergency department for further evaluation. Coding Level of Care Code Est Pt Level 3 (67424) Diagnoses COVID-19 U07.1
[2023-04-24 10:01] VITALS: BP 110/66; PULSE 77; TEMP 36.6; O2SAT 99; BMI 37.9
== END 2023-04-24 11:02 | disposition home or self-care (01) ==
PROVIDERS: PCP Internal Medicine; Visit Provider Physician Assistant
DX: U07.1 COVID-19 (principal)
CPT/HCPCS: 99213

== ENCOUNTER 2023-04-24 14:08 | Outpatient (REF) | payer OTHER, SELFPAY ==
[2023-04-24 15:39] LABS: Influenza A PCR NEGATIVE (Negative); Influenza B PCR NEGATIVE (Negative); Resp Syncy Virus RNA Qual PCR NEGATIVE (Negative); SARS COV2 PCR INHOUSE POSITIVE (Negative)
== END 2023-04-24 14:09 | disposition home or self-care (01) ==
LOC: HO.LNP 14:08
PROVIDERS: Visit Provider Physician Assistant
DX: Z20.822 Contact with and (suspected) exposure to COVID-19 (principal); R09.89 Other specified symptoms and signs involving the circulatory and respiratory systems
CPT/HCPCS: 0241U

== ENCOUNTER 2024-03-27 13:29 | Outpatient (AMB) | payer OTHER, SELFPAY ==
[2024-03-27 13:30] VITALS: BP 132/80; PULSE 75; TEMP 36.6; O2SAT 97
--- NOTE | 2024-03-27 13:30 | AM.OFFWIN_ITS ---
Intake Vital Signs 03/27/24 13:30 Height 5 ft 3 in BP 132/80 Blood Pressure Location Rt brachial Position Sitting Pulse 75 Pulse Source Pulse Oximeter Temp 97.8 F Temp Source Temporal Artery Scan Pulse Oximetry (%) 97 Intake Visit Reasons: EP/ belly abscess Intake Note: pt is here for belly abscess, stated its painful and has a white tip and red around the area Patient Tobacco Use Status: Never used Tobacco Allergies acetic acid [VINEGAR] Allergy (Unknown, Verified 03/27/24 13:35) STOMACH UPSET Penicillins Allergy (Unknown, Verified 03/27/24 13:35) RASH,HIVES Medication List - Last Reconciled 03/27/24 by TAYLOR Carvalho No Known Home Meds Do you need a note to return to daycare/school/sports/work: Yes HPI HPI Comments History of Present Illness Details Pleasant 34-year-old female here today with chief complaints of a pimple like area on her abdomen that started 1 week ago. She reports that 1 week ago she noticed a blackhead like area. Three days later she reports that the area became red with a white head like a pimple. The area is painful to touch. She started to apply Vicks to see if this would help and has not. She denies any trauma to the area. Denies to being bit by a tick. She had a Baby in September, she is no longer . She denies any constitutional symptoms. Exam Right upper quadrant is a raised, erythematous skin cyst with several white head areas. The surrounding skin is also mildly erythematous and warm to the touch. Painful to touch. Plan Doxycycline for 10 days. Avoid friction and shear. Cover the area only to avoid friction or shear, otherwise leave [facility]PITAL[facility] SERVICES MANAGER. Apply warm moist compresses several times per day. Educated on reasons to return to the office. This note is constructed using voice recognition software. While every effort has been made to ensure accuracy in senior clinical study manager, still errors may have been included Sometimes, these errors may affect the content or meaning of the given sentence . [facility] Medical History Arnold-Chiari malformation Asthma Family history of diabetes mellitus Family history of thyroid problem History of COVID-19 Hx of migraine headaches Hydrosalpinx Migraine Pain, eye, left Plantar fascial fibromatosis of left foot Surgical History History of bunionectomy Family History Mother Diabetes mellitus with multiple complications Maternal Grandfather Diabetes mellitus with multiple complications Maternal Grandmother Diabetes mellitus with multiple complications Paternal Uncle Colon cancer Family/Other Breast cancer Social History Household Members: Significant Other and Children Housing: Apartment Alcohol intake: current Alcohol intake frequency: holidays/special occasions only Patient Tobacco Use Status: Never used Tobacco Tobacco use type: Cigarette Cigarette Packs Per Day: 0 Cigarettes Per Day: 1 e-Cigarette/Vaping Use: Never Used service: No Current occupational status: employed 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 Medications: New doxycycline hyclate 100 mg PO BID 10 days 20 caps 0RF Coding Level of Care Code Est Pt Level 3 (66415) Diagnoses Cyst of skin L72.9
== END 2024-03-27 13:48 | disposition home or self-care (01) ==
PROVIDERS: PCP Internal Medicine; Visit Provider Nurse Practitioner Family
DX: L72.9 Follicular cyst of the skin and subcutaneous tissue, unspecified (principal)
CPT/HCPCS: 99051; 99213

== ENCOUNTER 2024-04-07 08:36 | Outpatient (AMB) | payer OTHER, SELFPAY ==
--- NOTE | 2024-04-07 08:39 | A.OFFPC_ITS ---
Vital Signs 04/07/24 08:40 Height 5 ft 3 in Weight 202 lb BMI 35.8 BP 110/80 Blood Pressure Location Lt brachial Position Sitting Pulse 70 Pulse Source Pulse Oximeter Pulse Oximetry (%) 97 Oxygen Delivery Method Room Air Intake Visit Reasons: physical Intake Note: Pt is here today for her PE: Last papsmear 11/14/23 Is last menstrual period known: Yes Last menstrual period: 03/23/24 Allergies acetic acid [VINEGAR] Allergy (Unknown, Verified 04/07/24 09:01) STOMACH UPSET Penicillins Allergy (Unknown, Verified 04/07/24 09:01) RASH,HIVES Medication List - Last Reconciled 04/07/24 by Brandie Victoria MD doxycycline hyclate 100 mg PO BID 10 days Tobacco use date assessed: 04/07/24 Dental Screening Dental Screen Date: 04/07/24 Did you have a dental visit in the last 12 months?: No Did you have a dental problem in the last 6 months where you did not have access to dental care?: No Was dental information given to patient?: Patient has dentist HPI physical HPI Details 34-year-old lady here today for physical exam. Last Pap smear was done at [facility], 11/11/2023 which came back negative for intraepithelial lesion or malignancy. Has history of preeclampsia with the of her seconds child last year , now with normal blood pressure and off antihypertensives. Complains of recurrent itchy rash appearing on different parts of her body, with no triggers, takes Zyrtec which affords only temporary relief. This has been present now for over a year. Has plantar fascitis , had physical therapy which afforded some relief, but has not been doing the exercises dot at [facility] Medical History (Updated 04/07/24 @ 09:24 by Brandie Victoria MD) History of asthma History of migraine Chronic urticaria Obesity (BMI 30-39.9) History of pre-eclampsia Family history of thyroid problem Family history of diabetes mellitus Plantar fascial fibromatosis of left foot History of COVID-19 Arnold-Chiari malformation Surgical History History of History of bunionectomy Family History Mother Diabetes mellitus with multiple complications Maternal Grandfather Diabetes mellitus with multiple complications Maternal Grandmother Diabetes mellitus with multiple complications Paternal Uncle Colon cancer Family/Other Breast cancer Social History Household Members: Significant Other and Children Housing: Apartment Alcohol intake: current Alcohol intake frequency: holidays/special occasions only Patient Tobacco Use Status: Former Tobacco user Tobacco use type: Cigarette Cigarette Packs Per Day: 0 Cigarettes Per Day: 1 e-Cigarette/Vaping Use: Never Used service: No Current occupational status: employed 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 1. Little interest or pleasure in doing things: not at all 2. Feeling down, depressed, or hopeless: not at all 3. Trouble falling or staying asleep, or sleeping too much: several days 4. Feeling tired or having little energy: not at all 5. Poor appetite or overeating: not at all 6. Feeling bad about yourself - or that you are a failure or have let yourself or your family down: not at all 7. Trouble concentrating on things, such as reading the newspaper or watching television: not at all 8. Moving or speaking so slowly that other people could have noticed. Or the opposite - being so fidgety or restless that you have been moving around a lot more than usual: not at all 9. Thoughts that you would be better off or of hurting yourself in some way: not at all Total score: 1 Depression Screening Interpretation: Negative Depression Screening Done: Yes Source: Developed by Drs. Ryan Marrero, Rosalia Partida, Messi West and colleagues, with an educational jas from [employer]. Thrive Questionnaire Date Thrive assessed: 04/07/24 I am a: Patient What is your living situation today?: I have a steady place to live Within the past 12 months, did the food you bought not last and you didn't have the money to get more?: Never true Within the past 12 months, did you worry whether your food would run out before you got money to buy more?: Never true Do you have trouble paying for medicines?: No Do you have trouble getting transportation to medical appointments?: No Do you have trouble paying your heating and electricity bill?: No Do you have trouble taking care of your child, family member or friend?: No Do you have trouble with day-to-day activities such as bathing, preparing meals, shopping, managing finances, etc.?: No Are you currently unemployed and looking for a job?: No Are you interested in more education?: No THRIVE Score: 0 AUDIT C Alcohol Use Questionnaire (AUDIT-C) 1. How often do you have a drink containing alcohol?: Monthly or less 2. How many drinks containing alcohol do you have on a typical day when you are drinking?: 1 or 2 3. How often do you have six or more drinks on one occasion?: Never Total Score: 1 FANNIE-7 AMB Questionnaire FANNIE-7 Date FANNIE - 7 assessed: 04/07/24 Feeling nervous, anxious, or on edge: 0 = Not at all Not being able to stop or control worryin = Not at all Worrying too much about different things: 0 = Not at all Trouble relaxin = Not at all Being so restless that it is hard to sit still: 0 = Not at all Becoming easily annoyed or irritable: 0 = Not at all Feeling afraid as if something awful might happen: 0 = Not at all Total FANNIE-7 score (0-4 normal; 5-9 mild; 10-14 moderate; 15-21 severe): 0 Source: Developed by Drs. Ryan Marrero, Rosalia Partida, Messi West and colleagues, with an educational jas from [employer]. FANNIE-7 Assessment Billing FANNIE-7 Assessment Tool: FANNIE-7 Assessment 60294 Review of Systems Const Denies body aches, Denies fatigue, Denies fever(s), Denies headache(s), Denies weakness and Denies weight loss Eyes Denies change in vision ENT Reports Normal hearing present, Denies dizziness, Denies headache(s), Denies nasal congestion, Denies nasal discharge and Denies sore throat Card Denies chest pain, Denies lightheadedness, Denies palpitations and Denies dyspnea Resp Denies chest congestion, Denies cough, Denies dyspnea and Denies wheezing GI Denies abdominal pain, Denies change in bowel habits and Denies heartburn Denies urinary frequency, Denies dysuria and Denies urinary urgency Musc Reports no additional complaints Skin/Breast Reports as per HPI and Denies lesions Neuro Reports Normal hearing present, Denies dizziness, Denies headache(s), Denies Sensory deficit (Neuro) and Denies weakness Psych Reports as per HPI Endo Denies fatigue, Denies polydipsia, Denies polyuria and Denies palpitations Marcos/Lymph Reports no additional complaints and Denies easy bruising Aller/Immun Reports no additional complaints, Denies seasonal rhinorrhea and Denies wheezing Physical exam (Primary Care) Vital Signs: Last Vital Signs Pulse 70 04/07/24 08:40 BP 110/80 04/07/24 08:40 Pulse Ox 97 04/07/24 08:40 Oxygen Delivery Method Room Air 04/07/24 08:40 BMI result Body Mass Index 35.8 Tobacco/Smoking Status: Tobacco use Status Tobacco use date assessed 04/07/24 04/07/24 08:44 Patient Tobacco Use Status Former Tobacco user 04/07/24 08:44 Tobacco use type Cigarette 04/07/24 08:44 e-Cigarette/Vaping Use Never Used 04/07/24 08:44 Depression Screening Interpretation: Negative Thrive Assessment: Date of Thrive Assessment Date Thrive assessed 04/06/21 04/07/24 08:44 Advance Care Planning discussion: Completed/Scanned Date of discussion: 04/07/24 Who was present: Patient Forms completed: Health Care Proxy Time spent: 16-45 minutes Actual minutes spent: 16 Const General: no acute distress and alert Orientation/consciousness: patient oriented x3 HENMT Head: Yes normocephalic Ears: external ears normal, TM's normal bilaterally and EAC's normal General nose exam: Normal external nose present and No nasal discharge present Face and sinus: Yes face symmetric Mouth: Normal oral and palatal mucosa present, lip normal, tongue normal, oropharynx normal and moist mucous membranes Eyes General: appearance normal, both eyes and all related structures Eyelids: Yes eyelids normal Conjunctivae: conjunctivae normal Sclerae: sclerae normal Pupils: Equal, round and reactive pupils present EOM: EOMs intact bilaterally Neck Neck: Yes full ROM, Yes no lymphadenopathy and Yes supple Thyroid: Thyroid normal Chest Chest palpation & inspection: normal inspection of the chest and normal palpation of entire chest wall Breast/axilla inspection: normal inspection of the breasts Breast/axilla palpation: normal palpation of the breasts Resp Effort & Inspection: normal respiratory effort and able to speak in complete sen tences Auscultation: clear to auscultation bilaterally Cardio Rate: regular rate Rhythm: regular rhythm Heart sounds: S1 normal heart sound present and S2 normal heart sound present GI Palpation (GI): Soft to palpation, nontender, no guarding and no masses Auscultation: normal bowel sounds General: Yes no CVA tenderness Back/Spine/Pelvis Back: no CVA tenderness and No back tenderness Skin General skin exam: no rashes or lesions noted Neuro General: patient oriented x3, gait normal, moves all extremities, Normal light touch and pain sensation, no focal motor deficits and CN's II-XI intact bilaterally Cranial nerves: Yes Equal, round and reactive pupils present and Yes Normal hearing present Cognition (Neuro): normal cognition Gait exam (Neuro): Normal gait present Motor exam (neuro): 5/5 motor strength present throughout Sensory Exam: No Sensory deficit (Neuro) Extrem General: Yes normal to inspection, Yes full ROM, Yes no joint enlargement, Yes no pedal edema and Yes normal gait Psych Appearance: grossly normal and well kempt Mental Status: mental status grossly normal Speech and movement: Normal speech and movement present Affect: normal affect Attitude: cooperative Thought process: Normal thought process present Thought content: Normal thought content present Assessment and Plan Assessment & Plan (1) Annual visit for general adult medical examination with abnormal findings: Code(s): Z00.01 - Encounter for general adult medical examination with abnormal findings Plan: Will check appropriate labs. Recommended dental visit every 6 months and regular eye exams, at least every 2 years. Take adequate calcium in diet and vitamin-D 3 at 2000 IU per cap once a day, in addition to weight-bearing exercises to help maintain good muscle tone and weight control. Instructed to do self-breast exam, and recommended to get yearly mammogram, starting at age 40. Up-to-date with her cervical cancer screening and pelvic exam, goes to [facility]., has ParaGard for control. Up-to-date with her Tdap, advised to get yearly flu shot, has had 2 COVID vaccines reminded to get the booster. (2) History of pre-eclampsia: Code(s): Z87.59 - Personal history of other complications of , childbirth and the puerperium Plan: Blood pressure today is within normal limits, currently now off antihypertensives, reinforced importance of following a low-salt diet and ge tting regular exercise (3) Chronic urticaria: Code(s): L50.8 - Other urticaria Plan: Continue taking Zyrtec 10 mg at bedtime, referred to Dr. Shi for further evaluation and management (4) Obesity (BMI 30-39.9): Code(s): E66.9 - Obesity, unspecified Plan: Your BMI is above the ideal range. I deal BMI is between 18.5- 24. BMI is calculated from you height and weight. Discussed need to increase activity and weight reduction. Recommended focusing on improving health instead of dieting. Mediterranean diet is a healthy diet that helps, limit food high in fat, sugar, and calories. Eat slowly, pay attention to portion sizes, plan your meals ahead of time, start regular physical activity, at least 150 minutes of moderate intensity exercise, or 90 minutes per week of vigorous exercise. Keeping a food diary, tracking what you eat and your physical activity can help assess what improvements you can make. There are many health problems associated with being overweight/obese, so it is important to improve your diet and exercise. There are medications and surgical options available, but Lifestyle changes are the 1st step. (5) Advanced directives, counseling/discussion: Code(s): Z71.89 - Other specified counseling Plan: Initiated the conversation about Advanced Directives. Advanced Directives help patients prepare for current and future decisions about their medical treatment and place of care. Discussed with patient that it is a process where a patients current condition and prognosis are reviewed, their wishes for information regarding their illness are elicited, and likely medical dilemmas are presented and options discussed. Healthcare proxy form completed today. The form can be amended as needed, reviewed yearly and make changes as needed Orders: Orders Lipid Panel Today E66.9 - Obesity, unspecified, Z00.01 - Encounter for general adult medical examination with abnormal findings, Z83.3 - Family history of diabetes mellitus, Z83.49 - Family history of other endocrine, nutritional and metabolic diseases, Z87.59 - Personal history of other complications of , childbirth and the puerperium Alanine Aminotransferase Today E66.9 - Obesity, unspecified, Z00.01 - Encounter for general adult medical examination with abnormal findings, Z83.3 - Family history of diabetes mellitus, Z83.49 - Family history of other endocrine, nutritional and metabolic diseases, Z87.59 - Personal history of other complications of , childbirth and the puerperium Aspartate Amino Transferase Today E66.9 - Obesity, unspecified, Z00.01 - Encounter for general adult medical examination with abnormal findings, Z83.3 - Family history of diabetes mellitus, Z83.49 - Family history of other endocrine, nutritional and metabolic diseases, Z87.59 - Personal history of other complications of , childbirth and the puerperium TSH reflex Free T4 Today E66.9 - Obesity, unspecified, Z00.01 - Encounter for general adult medical examination with abnormal findings, Z83.3 - Family history of diabetes mellitus, Z83.49 - Family history of other endocrine, nutritional and metabolic diseases, Z87.59 - Personal history of other complications of , childbirth and the puerperium Basic Metabolic Panel Fasting Today E66.9 - Obesity, unspecified, Z00.01 - Encounter for general adult medical examination with abnormal findings, Z83.3 - Family history of diabetes mellitus, Z83.49 - Family history of other endocrine, nutritional and metabolic diseases, Z87.59 - Personal history of other complications of , childbirth and the puerperium Vitamin D 25-OH Total Today E66.9 - Obesity, unspecified, Z00.01 - Encounter for general adult medical examination with abnormal findings, Z83.3 - Family history of diabetes mellitus, Z83.49 - Family history of other endocrine, nutritional and metabolic diseases, Z87.59 - Personal history of other complications of , childbirth and the puerperium Referrals Allergy & Immunology Referral L50.8 - Other urticaria Coding Level of Care Code Est Pt [facility] Care [id number]) Diagnoses Annual visit for general adult medical examination with abnormal findings Z00.01 History of pre-eclampsia Z87.59 Chronic urticaria L50.8 Obesity (BMI 30-39.9) E66.9 Advanced directives, counseling/discussion Z71.89 Additional Codes FANNIE-7 Assessment Billing - FANNIE-7 Assessment Tool: FANNIE-7 Assessment 81694 ([id number]) Vital Signs *Quality* - Advance Care Planning discussion: Completed/Scanned ([id number]) Vital Signs *Quality* - Time spent: 16-45 minutes ([id number])
[2024-04-07 08:40] VITALS: BP 110/80; PULSE 70; O2SAT 97; BMI 35.8
== END 2024-04-07 09:26 | disposition home or self-care (01) ==
LOC: HO.HMGC 08:36
PROVIDERS: PCP Internal Medicine; Visit Provider Internal Medicine
DX: Z00.00 Encounter for general adult medical examination without abnormal findings (principal); L50.8 Other urticaria; Z87.59 Personal history of other complications of pregnancy, childbirth and the puerperium; Z68.35 Body mass index [BMI] 35.0-35.9, adult; E66.9 Obesity, unspecified; Z71.89 Other specified counseling
CPT/HCPCS: 1123F; 99395; 99497

== ENCOUNTER 2024-04-07 09:26 | Outpatient (REF) | payer OTHER, SELFPAY ==
[2024-04-07 14:19] LABS: Alanine Aminotransferase 15 U/L (0-31); Anion Gap 11 (12-20); Aspartate Amino Transferase 14 U/L (5-31); Blood Urea Nitrogen 15 mg/dL (9-16); Calcium 9.6 mg/dL (8.4-10.2); Carbon Dioxide 26 mmol/L (22-29); Chloride 108 mmol/L (96-108); Cholesterol 213 mg/dL (<200); Estimated Glomerular Filt Rate > 60; Glucose Fasting 98 mg/dL (60-99); HDL Cholesterol 57 mg/dL (>40); LDL Cholesterol Calculated 141 mg/dL (<100); Potassium 3.9 mmol/L (3.3-5.1); Sodium 141 mmol/L (135-145); TSH reflex Free T4 0.54 uIU/mL (0.32-4.0); Triglycerides 79 mg/dL (<150); Vitamin D 25-OH Total 60.6 ng/mL (>30)
== END 2024-04-07 09:27 | disposition home or self-care (01) ==
LOC: HO.HMGCLDS 09:26
PROVIDERS: PCP Internal Medicine; Visit Provider Internal Medicine
DX: Z00.01 Encounter for general adult medical examination with abnormal findings (principal); E66.9 Obesity, unspecified; Z87.59 Personal history of other complications of pregnancy, childbirth and the puerperium; Z83.49 Family history of other endocrine, nutritional and metabolic diseases; Z83.3 Family history of diabetes mellitus
CPT/HCPCS: 36415; 80048; 80061; 82306; 84443; 84450; 84460